=== PATIENT | female | born 1985 | race Caucasian/White ===

== ENCOUNTER 2016-07-29 17:25 | Emergency (ER) | payer OTHER ==
[~2016-07-29] VITALS: Ht 157.5 cm; Wt 50.0 kg
[~2016-07-29 17:25] MED LIST: ABAT1INJ SQ; CARB200 PO; CELE200C PO; CLON.5 PO; CYCL-36 PO; FOLI1 PO; IBUP-232 PO; LORA-392 PO; METH2.5 PO; MOME17I; NEXI40CA PO; PATA0.2S EACH EYE; PROM6.2518 PO; RANI150T PO; TEGR100T PO
[2016-07-29 17:31] VITALS: BP 104/76; PULSE 99; RESP 16; TEMP 98; O2SAT 100
[2016-07-29] MEDS ORDERED: CLON0.5T PO (18:07)
[2016-07-29] MEDS ORDERED: LEVE500T8 PO (18:07)
[2016-07-29] MEDS ORDERED: BASE (18:07)
[2016-07-29] MEDS ORDERED: FOLI1TAB4 PO (18:07)
[2016-07-29] MEDS ORDERED: FLUT50SP EACH NARE (18:07)
[2016-07-29] MEDS ORDERED: AZIT100S2 PO (18:07)
[2016-07-29] MEDS ORDERED: ZANA2CAP PO (18:07)
[2016-07-29] MEDS ORDERED: DICY10CA12 PO (18:07)
[2016-07-29] MEDS ORDERED: LEVE250T5 PO (18:07)
[2016-07-29] MEDS ORDERED: NEXI40CA PO (18:07)
[2016-07-29] MEDS ORDERED: DICL1GEL TOPICAL (18:07)
[2016-07-29] MEDS ORDERED: ONDANSETRON HCL 4 MG/2 ML VIAL IV PUSH ONE (18:15)
[2016-07-29] MEDS ORDERED: KETOROLAC TROMETHAMINE 30 MG/ML (IVP) VIAL IV PUSH ONE (18:15)
[2016-07-29 18:16] LABS: BLOOD, URINE LARGE (NEG); GLUCOSE,URINE NEG (NEG); KETONE, URINE 40 mg/dL (NEG); NITRITE,URINE NEG (NEG)
[2016-07-29 18:17] LABS: METHOD OF COLLECTION CLEAN CATCH; URINE COLOR RED (YELLW/STRAW)
[2016-07-29 18:18] LABS: RBC, URINE INNUM /hpf (0-3)
[2016-07-29 18:19] LABS: SQUAMOUS EPITHELIAL CELL URINE > 8 /hpf (0-5)
[2016-07-29 18:20] LABS: COMMENT (UR) CULTURE INDICATED; CULTURE IF INDICATED CULTURE INDICATED
--- NOTE | 2016-07-29 18:22 | PD ---
HPI Chief Complaint: Abdominal Pain Time Seen by Provider: 17:58 Travel History International Travel<30 days: No Contact w/Intl Traveler<30days: No Traveled to known affect area: No History of Present Illness HPI 31-year-old female presents with lower abdominal pain and constipation over the past 3 days. She is here with her mother. She has history of chronic constipation and last went to days ago. She states she takes MiraLAX chronically. She states she uses 2 caps currently and if it gets to the point where she hasn't gone in 4 days then she increases to 3. She states she has been nauseous but denies other concurrent complaints. She states she has history of stomach issues and has done better on a medication but it is not approved through her insurance currently with her GI specialist at [facility]. Quality pain is sharp. Severity is moderate. She denies specific modifying factors. PFSH Past Medical History Hx Anticoagulant Therapy: No Arthritis: Yes Asthma: No Autoimmune Disease: Yes (SORIATIC ARTHRITIS) Blood Disorders: No Anxiety: Yes Heart Rhythm Problems: No Cancer: No Cardiovascular Problems: No High Cholesterol: No Chemotherapy: No Chest Pain: No Congestive Heart Failure: No COPD: No Cerebrovascular Accident: No Cystic Fibrosis: No Diabetes: No Diminished Hearing: No Endocrine: Yes (HYPOTHYROIDISM) Gastrointestinal Disorders: Yes (GASTROPARESIS) GERD: Yes (NEXIUM) Genitourinary: No Headaches: Yes (TYLENOL 1000MG PRN) Hiatal Hernia: No Heparin Induced Thrombocytopen: No Hypertension: No Immune Disorder: No Implanted Vascular Access Dvce: No Kidney Stones: No Musculoskeletal: No Neurologic: Yes (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) Psychiatric: No Reproductive: No Respiratory: No Immunizations Current: Yes Migraines: Yes (TYLENOL 1000MG PRN) Radiation Therapy: No Renal Failure: No Seizures: Yes Shingles: Yes Sickle Cell Disease: No Sleep Apnea: No Thyroid Disease: Yes (HYPOTHYROIDISM) Ulcer: No ?: Not LMP: 07/26/2016 : 0 Para: 0 Miscarriage: 0 : 0 Ovarian Cysts: Yes Past Surgical History Abdominal Surgery: Yes AICD: No Arteriovenous Shunt: No Cardiac Surgery: No Cholecystectomy: Yes Ear Surgery: No Endocrine Surgery: Yes (HYPOTHYROIDISM NOT CURRENTLY TAKING MEDS) Eye Surgery: No Genitourinary Surgery: No Gynecologic Surgery: No Hysterectomy: No Insulin Pump: No Joint Replacement: No Neurologic Surgery: Yes (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) Oral Surgery: Yes (WISDOM TEETH REMOVED) Pacemaker: No Thoracic Surgery: No Other Surgery: Yes (brain surgery x3) Social History Alcohol Use: No Tobacco Use: No Substance Use: No Allergies-Medications (Allergen,Severity, Reaction): Coded Allergies: Depakote (Verified Allergy, Severe, Seizures, 07/29/16) Dilantin (Verified Allergy, Severe, Seizures, 07/29/16) Phenergan (Verified Allergy, Severe, Seizures, 07/29/16) Phenobarbital (Verified Allergy, Severe, Seizures, 07/29/16) Topamax (Verified Allergy, Severe, COMBATIVE, 07/29/16) Levaquin (Verified Allergy, Mild, ITCHY, 07/29/16) Morphine (Verified Adverse Reaction, Severe, vomiting, 07/29/16) Reported Meds & Prescriptions Reported Meds & Active Scripts Active Reported Base D Polyethylene Glycol Powder (Polyethylene Glycol 4500 Powder) 1 Pow Pow Zanaflex (Tizanidine HCl) 2 Mg Cap 2 Mg PO BID Nexium (Esomeprazole DR) 40 Mg Capdr 40 Mg PO BID Voltaren Topical (Diclofenac Topical) 1% Gel 1 Applic TOPICAL QID Folate (Folic Acid) 1 Mg Tab 2 Mg PO DAILY Levetiracetam 250 Mg Tab 250 Mg PO BID Clonazepam 0.5 Mg Tab 0.5 Mg PO HS Levetiracetam 500 Mg Tab 500 Mg PO BID Dicyclomine (Dicyclomine HCl) 10 Mg Cap 10 Mg PO QID Azithromycin Liq (Azithromycin) 100 Mg/5 Ml Susp 12.5 Mg PO BID Take 50 mg (2.5 mL) Day 1 then 25 mg (1.25 mL) daily on days 2-5, discard any remainder. Fluticasone Nasal [place] 50 Mcg/Act Naspr 100 Mcg EACH NARE HS 50 mcg/spray Review of Systems Except as stated in HPI: all other systems reviewed are Neg Physical Exam Narrative GENERAL: Well-nourished, well-developed patient. SKIN: Warm and dry. HEAD: Normocephalic and atraumatic. EYES: No injection or drainage. ENT: No nasal drainage noted. NECK: Supple, trachea midline. CARDIOVASCULAR: Regular rate and rhythm RESPIRATORY: Breath sounds equal bilaterally. No accessory muscle use. GASTROINTESTINAL: Abdomen soft, diffusely tender, nondistended. NEUROLOGICAL: Awake and alert. Motor and sensory grossly within normal limits. Normal speech. Data Data Last Documented VS Vital Signs Date Time Temp Pulse Resp B/P Pulse Ox O2 Delivery O2 Flow Rate FiO2 07/29/16 17:31 98.0 99 16 104/76 100 Orders Urinalysis - C+S If Indicated (07/29/16 17:31) Ed Urine Pregnancytest Poc (07/29/16 17:31) Complete Blood Count With Diff (07/29/16 18:09) Comprehensive Metabolic Panel (07/29/16 18:09) Ct Abd/Pel W Iv Contrast(Rout) (07/29/16 ) Iv Access Insert/Monitor (07/29/16 18:09) Ketorolac Inj (Toradol Inj) (07/29/16 18:15) Ondansetron Inj (Zofran Inj) (07/29/16 18:15) Urine Culture (07/29/16 17:55) Labs Laboratory Tests Test 07/29/16 07/29/16 17:55 18:21 Urine Collection Type CLEAN CATCH Urine Color RED Urine Turbidity MARKED Urine pH 6.0 Urine Specific [place] 1.025 Urine Protein 100 mg/dL Urine Glucose (UA) NEG mg/dL Urine Ketones 40 mg/dL Urine Occult Blood LARGE Urine Nitrite NEG Urine Bilirubin NEG Urine Leukocyte Esterase NEG Urine RBC INNUM /hpf Urine WBC 50-99 /hpf Urine Squamous Epithelial > 8 /hpf Cells Microscopic Urinalysis Comment CULTURE INDICATED Urine Collection Time 17:55 White Blood Count 6.6 TH/MM3 Red Blood Count 3.72 MIL/MM3 Hemoglobin 11.6 GM/DL Hematocrit 35.0 % Mean Corpuscular Volume 94.2 FL Mean Corpuscular Hemoglobin 31.3 PG Mean Corpuscular Hemoglobin 33.2 % Concent Red Cell Distribution Width 11.8 % Platelet Count 156 TH/MM3 Mean Platelet Volume 7.0 FL Neutrophils (%) (Auto) 70.7 % Lymphocytes (%) (Auto) 18.8 % Monocytes (%) (Auto) 9.7 % Eosinophils (%) (Auto) 0.6 % Basophils (%) (Auto) 0.2 % Neutrophils # (Auto) 4.8 TH/MM3 Lymphocytes # (Auto) 1.2 TH/MM3 Monocytes # (Auto) 0.6 TH/MM3 Eosinophils # (Auto) 0.0 TH/MM3 Basophils # (Auto) 0.0 TH/MM3 CBC Comment DIFF FINAL Differential Comment Sodium Level 140 MEQ/L Potassium Level 3.3 MEQ/L Chloride Level 106 MEQ/L Carbon Dioxide Level 25.2 MEQ/L Anion Gap 9 MEQ/L Blood Urea Nitrogen 9 MG/DL Creatinine 0.57 MG/DL Estimat Glomerular Filtration 124 ML/MIN Rate Random Glucose 79 MG/DL Calcium Level 8.5 MG/DL Total Bilirubin 0.6 MG/DL Aspartate Amino Transf 26 U/L (AST/SGOT) Alanine Aminotransferase 34 U/L (ALT/SGPT) Alkaline Phosphatase 83 U/L Total Protein 7.7 GM/DL Albumin 3.8 GM/DL [facility] Medical Decision Making Medical Screen Exam Complete: Yes Emergency Medical Condition: Yes Medical Record Reviewed: Yes (pmh confirmed) Differential Diagnosis Musculoskeletal, menses, gastritis, gastroparesis, early appendicitis, constipation, cyst, .... Narrative Course Will check blood work, urinalysis, CT scan abdominal pelvis and dose with Toradol and Zofran and reevaluate Urinalysis shows blood and contamination. Patient without urinary symptoms and currently on menstrual cycle, discussed with patient and daughter and they agree to follow urine culture and hold antibiotics and not perform catheter specimen given no symptoms of this Physician Communication Physician Communication dr causey to follow ct and reeval Hilaria Back MD Jul 29, 2016 18:22
[2016-07-29 18:29] LABS: AUTOMATED NEUTROPHIL # 4.8 TH/MM3 (1.8-7.7); BASOPHIL % 0.2 % (0.0-2.0); EOSINOPHIL % 0.6 % (0.0-4.0); HEMO FLAGS DIFF FINAL; LYMPH % 18.8 % (9.0-44.0); LYMPHOCYTE # 1.2 TH/MM3 (1.0-4.8); MEAN CELL VOLUME 94.2 FL (80.0-100.0); MEAN CORPUSCULAR HEMOGLOBIN 31.3 PG (27.0-34.0); MEAN CORPUSCULAR HGB CONC 33.2 % (32.0-36.0); MONO % 9.7 % (0.0-8.0); NEUT % 70.7 % (16.0-70.0); PLATELET COUNT 156 TH/MM3 (150-450); RED BLOOD COUNT 3.72 MIL/MM3 (4.00-5.30); RED CELL DISTRIBUTION WIDTH 11.8 % (11.6-17.2); WHITE BLOOD COUNT 6.6 TH/MM3 (4.0-11.0)
[2016-07-29 18:36] LABS: CHLORIDE 106 MEQ/L (98-107); POTASSIUM 3.3 MEQ/L (3.5-5.1); SODIUM (NA) 140 MEQ/L (136-145)
[2016-07-29 18:40] LABS: ANION GAP 9 MEQ/L (5-15); BICARBONATE 25.2 MEQ/L (21.0-32.0); BLOOD UREA NITROGEN 9 MG/DL (7-18)
[2016-07-29 18:43] LABS: ALT (GPT) 34 U/L (10-53); AST (GOT) 26 U/L (15-37); GLOMERULAR FILTRATION RATE 124 ML/MIN (>89)
[2016-07-29 18:45] LABS: TOTAL BILIRUBIN ADULT 0.6 MG/DL (0.2-1.0)
[2016-07-29 18:46] LABS: ALKALINE PHOSPHATASE 83 U/L (45-117)
[2016-07-29] MEDS ORDERED: IOHEXOL 350 MG/ML 10 ML VIAL (for RAD DIAG) IV ONE (19:25)
--- NOTE | 2016-07-29 19:38 | RADHPO ---
EXAM DATE/TIME: 07/29/2016 19:06 [facility] COMPARISON: CT ABDOMEN & PELVIS W CONTRAST, May 27, 2013, 16:10. INDICATIONS: Right side abdominal pain. IV CONTRAST: 80 cc Omnipaque 350 (iohexol) IV ORAL CONTRAST: No oral contrast ingested. RADIATION DOSE: 5.89 CTDIvol (mGy) MEDICAL HISTORY: Gastroparesis. SURGICAL HISTORY: Cholecystectomy. ENCOUNTER: Initial ACUITY: 2 days PAIN SCALE: 4/10 LOCATION: Right abdomen TECHNIQUE: Volumetric scanning of the abdomen and pelvis was performed. Using automated exposure control and ad justment of the mA and/or kV according to patient size, radiation dose was kept as low as reasonably achievable to obtain optimal diagnostic quality images. FINDINGS: The liver, spleen, pancreas, adrenal glands and kidneys are normal. The bowel appears unremarkable. There is cystic changes seen in the pelvic regions bilaterally. There appears to be a large 4.8 cm r elatively simple cyst seen at the right adnexa and multiple cysts seen at the left adnexa with the la rgest one measuring 4 cm. The cyst on the left side demonstrates some increased density which could suggest some component of hemorrhage. There is a mild amount of free fluid seen in the cul-de-sac. The uterus is unremarkable. The bony structures are grossly intact. The lung bases are clear. CONCLUSION: Cystic areas seen in the adnexal regions bilaterally likely representing ovarian cysts. There is some increased density seen on the left side which could suggest some component of hemorrha ge. Other processes including tubo-ovarian abscesses or endometriomas could have this appearance. Dave Arce MD on July 29, 2016 at 19:28 Board Certified Radiologist. This report was verified electronically.
[2016-07-29 19:40] VITALS: BP 99/68; PULSE 80; RESP 16; RESP 17; TEMP 97.7; O2SAT 99
[2016-07-29] MEDS ORDERED: HYDR-3533 PO (20:29)
--- NOTE | 2016-07-29 20:30 | PD ---
Physical Exam Time Seen by Provider: 20:[address] Gonzales left this patient with me to check the CT abdomen/pelvis and likely discharge if there was nothing surgical. Data Data Last Documented VS Vital Signs Date Time Temp Pulse Resp B/P Pulse Ox O2 Delivery O2 Flow Rate FiO2 07/29/16 19:40 97.7 80 16 99/68 99 Room Air Orders Urinalysis - C+S If Indicated (07/29/16 17:31) Ed Urine Pregnancytest Poc (07/29/16 17:31) Complete Blood Count With Diff (07/29/16 18:09) Comprehensive Metabolic Panel (07/29/16 18:09) Ct Abd/Pel W Iv Contrast(Rout) (07/29/16 ) Iv Access Insert/Monitor (07/29/16 18:09) Ketorolac Inj (Toradol Inj) (07/29/16 18:15) Ondansetron Inj (Zofran Inj) (07/29/16 18:15) Urine Culture (07/29/16 17:55) Iohexol 350 Inj (Omnipaque 350 Inj) (07/29/16 19:25) Labs Laboratory Tests Test 07/29/16 07/29/16 17:55 18:21 Urine Collection Type CLEAN CATCH Urine Color RED Urine Turbidity MARKED Urine pH 6.0 Urine Specific [place] 1.025 Urine Protein 100 mg/dL Urine Glucose (UA) NEG mg/dL Urine Ketones 40 mg/dL Urine Occult Blood LARGE Urine Nitrite NEG Urine Bilirubin NEG Urine Leukocyte Esterase NEG Urine RBC INNUM /hpf Urine WBC 50-99 /hpf Urine Squamous Epithelial > 8 /hpf Cells Microscopic Urinalysis Comment CULTURE INDICATED Urine Collection Time 17:55 White Blood Count 6.6 TH/MM3 Red Blood Count 3.72 MIL/MM3 Hemoglobin 11.6 GM/DL Hematocrit 35.0 % Mean Corpuscular Volume 94.2 FL Mean Corpuscular Hemoglobin 31.3 PG Mean Corpuscular Hemoglobin 33.2 % Concent Red Cell Distribution Width 11.8 % Platelet Count 156 TH/MM3 Mean Platelet Volume 7.0 FL Neutrophils (%) (Auto) 70.7 % Lymphocytes (%) (Auto) 18.8 % Monocytes (%) (Auto) 9.7 % Eosinophils (%) (Auto) 0.6 % Basophils (%) (Auto) 0.2 % Neutrophils # (Auto) 4.8 TH/MM3 Lymphocytes # (Auto) 1.2 TH/MM3 Monocytes # (Auto) 0.6 TH/MM3 Eosinophils # (Auto) 0.0 TH/MM3 Basophils # (Auto) 0.0 TH/MM3 CBC Comment DIFF FINAL Differential Comment Sodium Level 140 MEQ/L Potassium Level 3.3 MEQ/L Chloride Level 106 MEQ/L Carbon Dioxide Level 25.2 MEQ/L Anion Gap 9 MEQ/L Blood Urea Nitrogen 9 MG/DL Creatinine 0.57 MG/DL Estimat Glomerular Filtration 124 ML/MIN Rate Random Glucose 79 MG/DL Calcium Level 8.5 MG/DL Total Bilirubin 0.6 MG/DL Aspartate Amino Transf 26 U/L (AST/SGOT) Alanine Aminotransferase 34 U/L (ALT/SGPT) Alkaline Phosphatase 83 U/L Total Protein 7.7 GM/DL Albumin 3.8 GM/DL [facility] Medical Record Reviewed: Yes Supervised Visit with NORMA: Yes Interpretation(s) The CT abdomen/pelvis with IV contrast shows cystic areas in the adnexal regions bilaterally which are likely representing ovarian cyst. There is evidence of possible rupture with some increased density on the left side. Differential Diagnosis Ovarian cyst, PID, tubo-ovarian abscess, ectopic Narrative Course The patient has chronic pelvic pain and recurrent ovarian cyst. She does have a plant pathologist but the mother states the seizure medication interferes with the medication the plant pathologist wants to put her on. The patient has a large amount of blood and innumerable red cells with 50-99 white cells on the urine. She does not have any urinary symptoms and probably does not have a urinary infection. Impression: Ruptured ovarian cyst. Plan: The patient states she cannot take nonsteroidal anti-inflammatory drugs because of gastrointestinal side effects. She will be given Lortab 5 for pain and follow-up with a plant pathologist. Additional Instruction: As we discussed, follow-up with a plant pathologist. You may need hormonal therapy to prevent formation of the cysts. This is beyond the scope of the emergency department. Med/Other Pt SpecificInfo: Prescription(s) given Scripts Hydrocodone-Acetaminophen (Lortab)5-325 Mg Tab1 Tab PO Q4H PRN (PAIN) #28 TAB Ref 0 Prov:Jerson Urbano MD 07/29/16 Disposition: 01 DISCHARGE HOME Condition: Fair Jerson Urbano MD Jul 29, 2016 20:30
[2016-07-29 20:51] VITALS: BP 117/71
== END 2016-07-29 20:53 | disposition home or self-care (01) ==
LOC: PHED 17:25
DX: N83.8 Other noninflammatory disorders of ovary, fallopian tube and broad ligament (principal); M19.90 Unspecified osteoarthritis, unspecified site
CPT/HCPCS: 74177; 80053; 81001; 84703; 85025; 87086; 96374; 96375; 99284; J1885; J2405; Q9967